=== PATIENT | male | born 1940 | race Caucasian/White ===

== ENCOUNTER 2018-05-18 18:26 | Inpatient (IN) | payer MEDICARE, BC ==
[~2018-05-18] VITALS: Ht 174 cm; Wt 83.6 kg
[~2018-05-18 18:26] MED LIST: ASPIRIN EC325 M1 PO; CALCIUM 600 +1 EAC3 PO; CARAFATE1 G PO; CIPRO250 MG PO; MULTIPLE VITAMI1 TA1 PO; PRILOSEC20 MG PO; VITAMIN C1000 MG PO
[2018-05-18] MEDS ORDERED: ASPIRIN81 MG PO (18:35)
[2018-05-18 18:56] LABS: BASOPHILS 0.2 % (0-2); EOSINOPHILS 0.7 % (0-7); HEMATOCRIT 44.9 % (42.0-54.0); HEMOGLOBIN 15.2 g/dL (13.5-17.5); IMMATURE GRANULOCYTES 0.2 % (0-5); LYMPHOCYTES 26.5 % (15-50); MCH 35.8 pg (26.0-34.0); MCHC 33.9 g/dL (31.0-37.0); MCV 105.9 fL (80.0-100.0); MEAN PLATELET VOLUME 11.4 fL (7.4-10.4); MONOCYTES 12.8 % (2-11); NEUTROPHILS 59.6 % (40-80); RBC 4.24 10x6/uL (4.20-6.10); RDW 13.3 % (11.5-14.5); WBC 12.2 10x3/uL (4.8-10.8)
--- NOTE | 2018-05-18 18:56 | NUR ---
REPORT GIVEN TO JAZMINE GALINDO
[2018-05-18 18:59] LABS: PLATELET COUNT 213 10x3/uL (130-400)
[2018-05-18 19:09] LABS: ALBUMIN 3.5 g/dL (3.4-5.0); ALKALINE PHOSPHATASE 53 U/L (46-116); ALT (SGPT) 43 U/L (10-68); BILIRUBIN - TOTAL 0.47 mg/dL (0.2-1.3); CALC OSMOLALITY 289 mosm/kg (275-300); CALCIUM 8.8 mg/dL (8.5-10.1); CARBON DIOXIDE 27.8 mmol/L (21.0-32.0); CHLORIDE - SERUM 104 mmol/L (98-107); GLUCOSE 115 mg/dL (74-106); POTASSIUM - SERUM 4.1 mmol/L (3.5-5.1); PROTEIN - SERUM 7.6 g/dL (6.4-8.2); SODIUM 142 mmol/L (136-145); UREA NITROGEN 30 mg/dL (7-18); eGFR NON AFRICAN AMERICAN 77 mL/min (90-120)
[2018-05-18 19:12] LABS: AMYLASE - SERUM 104 U/L (25-115); LIPASE 139 U/L (73-393); TROPONIN-I < 0.017 ng/mL (0.000-0.060)
[2018-05-18 19:18] LABS: APTT 25.8 SECONDS (22.8-39.4); INR 1.09 (0.85-1.17); PROTIME 13.6 SECONDS (11.6-15.0)
--- NOTE | 2018-05-18 20:20 | NUR ---
REC'D PT FROM ED VIA STRETCHER, ASSISTED TO ICU BED, STEM THRESHING MACHINE OPERATOR ATTACHED. HISTORY AND ADM. ASSESSMENT COMPLETED. VSS. WILL CONT TO MONITOR.
[2018-05-18 20:47] VITALS: BP 151/85; BMI 26.0
--- NOTE | 2018-05-18 20:50 | NUR ---
DR SWAIN AT BEDSIDE FOR EGD. CONSENTS SIGNED. BILATERAL 18G IV'S IN PLACE. PT AWAKE AND ALERT. QUESTIONS ANSWERED BY ANESTHESIA.
[2018-05-18 21:00] VITALS: BP 150/84
[2018-05-18 22:00] VITALS: BP 143/85
[2018-05-18 22:15] LABS: HEMATOCRIT 39.2 % (42.0-54.0); HEMOGLOBIN 13.1 g/dL (13.5-17.5)
[2018-05-18 23:00] VITALS: BP 141/74
--- NOTE | 2018-05-18 23:00 | NUR ---
PT IS AWAKE AND ALERT. C/O INTERMITANT NAUSEA. ZOFRAN GTT INFUSING. REGLAN GIVEN IV PER ORDER. VOIDS IN URINAL INDEPENDENTLY. VSS. DENIES PAIN
[2018-05-19] VITALS (23 sets, daily range): BP systolic 94–152; BP diastolic 72–101; Ht 174 cm; Wt 83.6 kg
[2018-05-19 04:27] LABS: BASOPHILS 0.1 % (0-2); EOSINOPHILS 0.1 % (0-7); HEMATOCRIT 39.3 % (42.0-54.0); HEMOGLOBIN 13.2 g/dL (13.5-17.5); IMMATURE GRANULOCYTES 0.2 % (0-5); LYMPHOCYTES 9.3 % (15-50); MCH 35.5 pg (26.0-34.0); MCHC 33.6 g/dL (31.0-37.0); MCV 105.6 fL (80.0-100.0); MEAN PLATELET VOLUME 11.3 fL (7.4-10.4); MONOCYTES 10.5 % (2-11); NEUTROPHILS 79.8 % (40-80); PLATELET COUNT 193 10x3/uL (130-400); RBC 3.72 10x6/uL (4.20-6.10); RDW 13.3 % (11.5-14.5); WBC 14.6 10x3/uL (4.8-10.8)
[2018-05-19 04:46] LABS: CALC OSMOLALITY 287 mosm/kg (275-300); CALCIUM 7.8 mg/dL (8.5-10.1); CARBON DIOXIDE 25.5 mmol/L (21.0-32.0); CHLORIDE - SERUM 107 mmol/L (98-107); GLUCOSE 109 mg/dL (74-106); POTASSIUM - SERUM 4.4 mmol/L (3.5-5.1); SODIUM 140 mmol/L (136-145); UREA NITROGEN 36 mg/dL (7-18)
[2018-05-19 04:54] LABS: APPEARANCE CLEAR (CLEAR); BILIRUBIN NEGATIVE (NEGATIVE); COLOR YELLOW (YELLOW); GLUCOSE NEGATIVE (NEGATIVE); KETONE NEGATIVE (NEGATIVE); NITRITE NEGATIVE (NEGATIVE); PROTEIN NEGATIVE (NEGATIVE); SPECIFIC GRAVITY 1.015 (1.005-1.020); UROBILINOGEN NORMAL (NORMAL)
[2018-05-19 04:55] LABS: BACTERIA NONE SEEN /hpf (NONE SEEN); EPITHELIAL CELLS 0-5 /hpf (0-5); RED CELLS - URINE 0-5 /hpf (0-5); WHITE CELLS - URINE NSEEN /hpf (0-5)
[2018-05-19 05:00] LABS: CREATININE - SERUM 0.7 mg/dL (0.6-1.3); eGFR NON AFRICAN AMERICAN > 90 mL/min (90-120)
--- NOTE | 2018-05-19 05:30 | NUR ---
PT OOB X 2 TRYING TO HAVE A BM. STATES THAT HE PASSED GAS BY NO BM. VSS.
--- NOTE | 2018-05-19 07:10 | NUR ---
DR. FALLON AT BEDSIDE, UPDATE GIVEN
--- NOTE | 2018-05-19 07:15 | NUR ---
SHIFT ASSESSMENT COMPLETE, PT IS ALERT AND ORIENTED, ON RA WITH 97% O2 SAT. ALL PPP, VSS, CALL LIGHT IN REACH
--- NOTE | 2018-05-19 09:15 | NUR ---
LG BM AT THIS TIME, STOOL SAMPLE SENT TO LAB,
[2018-05-19 10:01] LABS: HEMATOCRIT 38.3 % (42.0-54.0)
--- NOTE | 2018-05-19 11:29 | NUR ---
REASSESSMENT COMPLETE, NO CHANGES NOTED, WILL CON'T TO MONITOR
--- NOTE | 2018-05-19 13:15 | NUR ---
UPTO BSC AT THIS TIME, DARK TARRY STOOL NOTED,
--- NOTE | 2018-05-19 15:20 | NUR ---
REASSESSMENT COMPLETE, NO CHANGES NOTED, BATH AND LINEN CHANGE, WILL CON'T TO MONITOR
[2018-05-19 16:52] LABS: HEMATOCRIT 36.1 % (42.0-54.0); HEMOGLOBIN 12.3 g/dL (13.5-17.5)
--- NOTE | 2018-05-19 17:15 | NUR ---
SM BM AT THIS TIME, NO OTHER NEEDS NOTED,
--- NOTE | 2018-05-19 18:03 | HP ---
PATIENT: KAYLAN FOSTER MEDICAL RECORD: [id number] ACCOUNT: [id number] LOCATION:[facility] D.2311 : 42 ADMISSION DATE: 05/18/18 PCP: DIANA FALLON MD HISTORY AND PHYSICAL EXAMINATION REASON FOR ADMISSION: Abdominal pain, vomiting blood. 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 He has been cancer free for over 7 years and had normal EGD in February of this year. He states he had little change in his stools, are somewhat loose every other day for the last week. After an evening walk with his last evening, he became nauseated upon returning home and vomited twice and vomited dark blood. He got in the car to come to the hospital and pulled over, and vomited again and then vomiting again in the ER. He had no melena. He was admitted emergently, taken to the GI lab by Dr. Sanchez. An EGD was performed showing two Sara-Olvera tears in his Marcell-en-Y gastric mucosa and lots of blood in the stomach. He has been moved to the ICU, placed on Protonix and Zofran drip. He is comfortable currently, he is not anemic. 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 He had PE, DVT, remotely; currently off anticoagulants. CURRENT MEDICATIONS: Carafate 1 gram b.i.d., Ecotrin 81 mg a day. PAST SURGICAL HISTORY: Cholecystectomy, splenectomy, enterostomy, lymph node biopsy, partial gastrectomy with Marcell-en-Y anastomosis, he has had multiple upper and lower endoscopies, last EGD was in February of 2018 and normal, inguinal hernia repair on the right. 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 Remote smoker, 11-zndh-brre history, quit 28 years ago. He does not use alcohol or drugs. FAMILY HISTORY: Father of cancer of the prostate. Mother from stroke. REVIEW OF SYSTEMS: CONSTITUTIONAL: No fever, fatigue, or weight change. HEENT: No recent visual change, sinus congestion, or sore throat. He has chronic trouble hearing and wears hearing aids. RESPIRATORY: No SOB, cough or sputum production. CARDIAC: No exertional rest chest pain, claudication, edema or palpitations. GASTROINTESTINAL: Nausea starting this evening with multiple episodes of retching bright red blood. Denies melena. Loose stools have been softer recently states. He has had mild epigastric pain a week ago that was nothing more than a stomachache. GENITOURINARY: Nocturia once nightly. He has had borderline PSA with negative percent free PSA. ENDOCRINE: Denies polyuria, polydipsia, heat or cold intolerance. NEUROLOGIC: No history of stroke, TIA, or vascular headaches. INTEGUMENT: No rash or itching. HISTORY AND PHYSICAL [id number] KAYLAN FOSTER PSYCHIATRIC: Denies depressed mood. PHYSICAL EXAMINATION: GENERAL: Alert 78-year-old male in no acute distress. VITAL SIGNS: His temperature is 98 degrees Fahrenheit, pulse is 100, respirations are 18, sats 98% on room air. GENERAL: In no acute distress. HEENT: Eyes are clear. Oropharynx unremarkable. NECK: No bruits or masses. CHEST: Clear. HEART: Regular rate and rhythm without murmur. PMI appropriate. ABDOMEN: Epigastrium, nontender. No abdominal masses felt. RECTAL: Deferred. EXTREMITIES: No CC&E. INTEGUMENT: No icterus or petechiae. LABORATORY DATA: H&H is 13 and 36, stable. BUN elevated at 36. Otherwise normal. EGD as above. ASSESSMENT: Retching with acute upper gastrointestinal bleed, Sara-Olvera tears times 2, history of gastric carcinoma, History of deep vein thrombosis and pulmonary embolism. PLAN: The patient will remain in the ICU on IV Protonix and Reglan drips at this time. Dr. Sanchez may reendoscope before discharge from the hospital. TRANSINT:[id number] Voice Confirmation ID: [id number] DOCUMENT ID: [id number] DIANA FALLON MD at 1803 CC: [id number] DICTATION DATE: 05/19/18 0812 EHR TRAINER: 05/19/18 1023 [place] [address]
[2018-05-19 19:44] LABS: HEMATOCRIT 34.8 % (42.0-54.0); HEMOGLOBIN 11.9 g/dL (13.5-17.5)
[2018-05-20] VITALS (16 sets, daily range): BP systolic 115–143; BP diastolic 62–98
--- NOTE | 2018-05-20 04:00 | NUR ---
PT AWAKE AND ALERT. ORIENTED X 3. DEMIES NEEDS. BM X 2. ZOFRAN AND PROTONIX GTT INFUSING PER ORDERS. REMAINS NAUSEA FREE.
[2018-05-20 04:36] LABS: BASOPHILS 0.6 % (0-2); EOSINOPHILS 1.2 % (0-7); HEMATOCRIT 34.3 % (42.0-54.0); HEMOGLOBIN 11.4 g/dL (13.5-17.5); IMMATURE GRANULOCYTES 0.2 % (0-5); LYMPHOCYTES 28.6 % (15-50); MCHC 33.2 g/dL (31.0-37.0); MCV 105.2 fL (80.0-100.0); MEAN PLATELET VOLUME 11.2 fL (7.4-10.4); MONOCYTES 12.5 % (2-11); NEUTROPHILS 56.9 % (40-80); PLATELET COUNT 165 10x3/uL (130-400); RBC 3.26 10x6/uL (4.20-6.10); RDW 13.6 % (11.5-14.5)
[2018-05-20 04:39] LABS: WBC 8.6 10x3/uL (4.8-10.8)
[2018-05-20 04:46] LABS: CALCIUM 7.9 mg/dL (8.5-10.1); CARBON DIOXIDE 23.2 mmol/L (21.0-32.0); CHLORIDE - SERUM 109 mmol/L (98-107); GLUCOSE 103 mg/dL (74-106); POTASSIUM - SERUM 3.9 mmol/L (3.5-5.1); SODIUM 141 mmol/L (136-145); eGFR NON AFRICAN AMERICAN 87 mL/min (90-120)
[2018-05-20 04:55] LABS: CALC OSMOLALITY 281 mosm/kg (275-300); CREATININE - SERUM 0.9 mg/dL (0.6-1.3); UREA NITROGEN 14 mg/dL (7-18)
--- NOTE | 2018-05-20 07:02 | NUR ---
REPORT RECIEVED, SHIFT ASSESSMENT COMPLETE, PT IS ALERT AND ORIENTED, DR. FALLON AT BEDSIDE, UPDATE GIVEN, ALL PPP, VSS, CALL LIGHT IN REACH
--- NOTE | 2018-05-20 08:44 | NUR ---
UPDATE GIVEN TO FRED ALEXANDER TO TRANSFER TO FLOOR
--- NOTE | 2018-05-20 08:45 | NUR ---
REPORT CALLED TO SHEYLA GALINDO ON MED 2
--- NOTE | 2018-05-20 09:16 | NUR ---
RECEIVED TO ROOM FROM ICU VIA WHEELCHAIR. GLASSES ON. RIGHT HAND PIV WITH ZOFRAN INFUSING AT 4.7, RIGHT FA PIV WITH NS INFUSING AT 10 CC/HR AND PROTONIX INFUSING AT 10 CC/HR. DENIES NEEDS AT THIS TIME. CALL LIGHT IN USE.
--- NOTE | 2018-05-20 10:15 | NUR ---
LAYING IN BED WATCHING TV.
--- NOTE | 2018-05-20 11:42 | NUR ---
CALLED TO ROOM WITH RASHIDA STATING THAT HE IS SLIGHTLY NASUSEATED. STILL ON ZOFRAN DRIP. CALL PLACED TO DR HARVEY TO SEE IF I CAN GIVE HIM ANY ADDTIONAL MEDICATION. NEW ORDERS RECEIVED.
--- NOTE | 2018-05-20 12:32 | NUR ---
PHENERGAN SUPP GIVEN PER REQUEST. ONSTRCUTED TO MAKE SURE STAFF IS IN THE ROOM WHEN NEEDING TO GET UP. STATES TO UNDERSTANDING.
--- NOTE | 2018-05-20 14:04 | NUR ---
1400- TO COME GET ME WITH PATIENT IN RESTROOM THROWING UP SOME BRIGHT RED BLOOD. CALL PLACED TO DR FALLON OFFICE, DR VILLAREAL HEAD OF STORE OPERATIONS. HE ASKED THAT I CALL DR SWAIN. NEW ORDERS RECEIVED. PATIENT IS MADE NPO.
--- NOTE | 2018-05-20 14:27 | NUR ---
DR SWAIN TO CALL WITH TRANSFER ORDER FOR ICU TODAY TO OBSERVE PATIENT SHE CAN'T SCOPE HIM THIS EVENING. I CALLED HOT PLATE PLYWOOD PRESS OPERATOR AND LET HER BE AWARE OF THIS.
--- NOTE | 2018-05-20 14:28 | NUR ---
I CALLED DARLIN IN ICU AND GAVE REPORT.
--- NOTE | 2018-05-20 14:38 | NUR ---
I CALLED AND NOTIFIED DR VILLAREAL OF THE ROOM NUMBER FOR ICU.
--- NOTE | 2018-05-20 14:56 | NUR ---
1450-TRANSFERRED TO ICU VIA WHEELCHAIR.
[2018-05-20 18:36] LABS: BASOPHILS 0.3 % (0-2); EOSINOPHILS 0.2 % (0-7); HEMATOCRIT 32.4 % (42.0-54.0); HEMOGLOBIN 10.9 g/dL (13.5-17.5); IMMATURE GRANULOCYTES 0.3 % (0-5); LYMPHOCYTES 16.3 % (15-50); MCH 35.2 pg (26.0-34.0); MCHC 33.6 g/dL (31.0-37.0); MCV 104.5 fL (80.0-100.0); MEAN PLATELET VOLUME 11.5 fL (7.4-10.4); MONOCYTES 8.8 % (2-11); NEUTROPHILS 74.1 % (40-80); PLATELET COUNT 156 10x3/uL (130-400); RDW 13.5 % (11.5-14.5)
[2018-05-20 18:38] LABS: WBC 14.4 10x3/uL (4.8-10.8)
[2018-05-20 21:28] LABS: HEMATOCRIT 29.1 % (42.0-54.0); HEMOGLOBIN 9.6 g/dL (13.5-17.5)
--- NOTE | 2018-05-20 22:30 | NUR ---
HEMG 9.6 TRANSFUSING 1UPRBC
--- NOTE | 2018-05-20 23:11 | NUR ---
PT HEMG 9.6 INFUSING 1UPRBC'S PER NURSING ORDER. VSS NO S/S OF DISTRESS CALL LIGHT IN REACH PT USING URINAL WILL CONTINUE TO MONITOR.
[2018-05-21] VITALS (24 sets, daily range): BP systolic 104–149; BP diastolic 41–91
--- NOTE | 2018-05-21 00:09 | NUR ---
blood infusing no s/s of distress vss, all needs met at this time, will continue to monitor.
--- NOTE | 2018-05-21 01:09 | NUR ---
blood finished pt tolerated well, vss, all fulids running as ordered, no other needs at this time.
--- NOTE | 2018-05-21 02:07 | NUR ---
pt resting well, vss no s/s of distress call light in reach no needs at this time will continue to monitor.
--- NOTE | 2018-05-21 04:35 | NUR ---
pt still resting well, no changes to report at this time will continue to monitor.
[2018-05-21 04:44] LABS: BASOPHILS 0.3 % (0-2); EOSINOPHILS 1.8 % (0-7); HEMATOCRIT 30.3 % (42.0-54.0); HEMOGLOBIN 10.3 g/dL (13.5-17.5); IMMATURE GRANULOCYTES 0.2 % (0-5); LYMPHOCYTES 24.5 % (15-50); MCH 34.3 pg (26.0-34.0); MEAN PLATELET VOLUME 11.6 fL (7.4-10.4); MONOCYTES 14.4 % (2-11); NEUTROPHILS 58.8 % (40-80); PLATELET COUNT 133 10x3/uL (130-400)
[2018-05-21 05:03] LABS: WBC 8.7 10x3/uL (4.8-10.8)
[2018-05-21 05:16] LABS: CALC OSMOLALITY 285 mosm/kg (275-300); CALCIUM 7.6 mg/dL (8.5-10.1); CARBON DIOXIDE 23.5 mmol/L (21.0-32.0); CHLORIDE - SERUM 109 mmol/L (98-107); CREATININE - SERUM 0.7 mg/dL (0.6-1.3); GLUCOSE 98 mg/dL (74-106); POTASSIUM - SERUM 4.2 mmol/L (3.5-5.1); SODIUM 142 mmol/L (136-145); eGFR NON AFRICAN AMERICAN > 90 mL/min (90-120)
[2018-05-21 05:27] LABS: UREA NITROGEN 22 mg/dL (7-18)
--- NOTE | 2018-05-21 09:29 | NUR ---
NUTRITION F/U PT REMAINS NPO S/P PROCEDURE. WILL MONITOR DIET ADVANCEMENT, PT PROGRESS. RD FOLLOWING
[2018-05-21 09:51] LABS: HEMATOCRIT 31.9 % (42.0-54.0); HEMOGLOBIN 10.8 g/dL (13.5-17.5)
[2018-05-21 16:58] LABS: HEMATOCRIT 31.6 % (42.0-54.0); HEMOGLOBIN 10.5 g/dL (13.5-17.5)
--- NOTE | 2018-05-21 18:49 | MORECARE ---
CASE MANAGEMENT DISCHARGE SUMMARY PATIENT: KAYLAN FOSTER UNIT: [id number] ADM DATE: 05/18/18 AGE: 78 : 42 SEX: M ROOM/BED: D.2316 AUTHOR: MARISELADOC PHYSICIAN: REFERRING PHYSICIAN: DIANA FALLON MD DATE OF SERVICE: 05/21/18 Discharge Plan Patient Name: KAYLAN FOSTER Facility: [facility]:[place] : 1940 Planned Disposition: Home Anticipated Discharge Date: Discharge Date: Expected LOS: Initial Reviewer: [email or web address] Initial Review Date: 05/21/2018 Generated: 05/21/18 7:49 pm Comments DCP- Discharge Planning Updated by [email or web address]: Holley Duval on 05/21/18 5:[address] LATE ENTRY 05/21/18 @ 1735 Patient Name: KAYLAN FOSTER Admission Status: ER Accout number: [id number] Admission Date: 05-18-2018 : 1940 Admission Diagnosis:GASTROINTESTINAL HEMORRHAGE, UNSPECIFIED Attending: DIANA FALLON Current LOS: 3 Anticipated DC Date: Planned Disposition: Home Primary Insurance: MEDICARE A & B Discharge Planning Comments: CM met with patient at bedside after obtaining verbal consent. Patient states he plans on returning home after discharge with his . Patient states he will have family transport him home via private vehicle. Patient denies any discharge needs at this time. CM will continue to follow and assist as needed for discharge planning / needs. Diesel Dragline Operator: Holley Duval DCPIA - Discharge Planning Initial Assessment Updated by [email or web address]: Holley Duval on 05/21/18 6:46 pm * Is the patient Alert and Oriented? Yes * How many steps to enter\exit or inside your home? * PCP SINHALA * [facility] * Preadmission Environment Home with Family * ADLs Independent * Equipment None * List name and contact numbers for known caregivers / representatives who currently or will assist patient after discharge: AVIVA FOSTER - - [phone] * Verbal permission to speak to the caregivers and representatives has been obtained from the patient. Yes * Community resources currently utilized None * Additional services required to return to the preadmission environment? No * Can the patient safely return to the preadmission environment? Yes * Has this patient been hospitalized within the prior 30 days at any hospital? No Patient Name: KAYLAN FOSTER Page [phone] at 1849 All edits/amendments must be made on the electronic document DICTATION DATE: 05/21/181848 SUB PLANT MANAGER: ALYSSA 05/21/181848 RPT#: [id number] DC DATE: STATUS: ADM IN [facility] [address] [place] [address] END OF REPORT
--- NOTE | 2018-05-21 20:00 | NUR ---
PT SITTING IN BED WATCHING TV AND TALKING TO , VSS NO S/S OF DISTRESS, NO NEEDS AT THIS TIME ALL SAFETY MEASURES IN PLACE HOURLY ROUNDING, CALL LIGHT IN REACH WILL CONTINUE AND MONITOR.
[2018-05-22] VITALS (19 sets, daily range): BP systolic 98–154; BP diastolic 52–95
--- NOTE | 2018-05-22 00:31 | NUR ---
pt resting well, HR dropping into the 50's, non symptomatic wake easily and says he feels good, will continue to watch closely.
[2018-05-22 04:09] LABS: BASOPHILS 0.6 % (0-2); EOSINOPHILS 2.2 % (0-7); HEMATOCRIT 30.9 % (42.0-54.0); HEMOGLOBIN 10.4 g/dL (13.5-17.5); IMMATURE GRANULOCYTES 0.1 % (0-5); LYMPHOCYTES 21.4 % (15-50); MCH 34.3 pg (26.0-34.0); MCHC 33.7 g/dL (31.0-37.0); MONOCYTES 12.1 % (2-11); NEUTROPHILS 63.6 % (40-80); PLATELET COUNT 140 10x3/uL (130-400); RBC 3.03 10x6/uL (4.20-6.10); RDW 15.2 % (11.5-14.5); WBC 7.7 10x3/uL (4.8-10.8)
[2018-05-22 04:17] LABS: CALCIUM 7.6 mg/dL (8.5-10.1); CARBON DIOXIDE 23.1 mmol/L (21.0-32.0); CHLORIDE - SERUM 107 mmol/L (98-107); GLUCOSE 119 mg/dL (74-106); POTASSIUM - SERUM 3.7 mmol/L (3.5-5.1); SODIUM 141 mmol/L (136-145); eGFR NON AFRICAN AMERICAN 87 mL/min (90-120)
[2018-05-22 04:19] LABS: CALC OSMOLALITY 281 mosm/kg (275-300); CREATININE - SERUM 0.9 mg/dL (0.6-1.3); UREA NITROGEN 13 mg/dL (7-18)
--- NOTE | 2018-05-22 07:00 | NUR ---
ASSESSMENT COMPLETE PT DENIES ABD PAIN OR NAUSEA AT THIS TIME. VSS SEE IV FLOWSHEET FOR IV DRIPS. CALL LIGHT IN REACH
[2018-05-22 07:21] LABS: FOLATE (FOLIC ACID) - SERUM 11.9 ng/mL (>3.0)
--- NOTE | 2018-05-22 08:00 | NUR ---
PTS SPOUSE HERE FOR VISITATION. PT HAS JELLO ON HIS BREAKFAST TRAY BUT DUE TO PREVIOUS ABDOMINAL SURGERY UNABLE TO EAT SUGAR. REQUEST SENT FOR SUGAR FREE JELLO
--- NOTE | 2018-05-22 11:00 | NUR ---
REASSESSMENT COMPLETED PT UP TO BSC WITH MINIMAL ASSIST APPROXIMATE 100 CC DARK LIQUID STOOL. PT C/O SLIGHT NAUSEA WHEN STANDING UP. HAS ZOFRAN DRIP BUT HAS PROMETHAZINE SUPP PRN. VSS AT THIS TIME
--- NOTE | 2018-05-22 11:08 | NUR ---
PHENEGRAN SUPPOSITORY GIVEN PER PRN ORDER PT SAYS NOT TOO BAD NAUSEATED BUT WANTED TO KEEP FROM WORSENING
--- NOTE | 2018-05-22 12:00 | NUR ---
PT DENIES NAUSEA PHENEGRAN SUPPOSITORY EFFECTIVE
--- NOTE | 2018-05-22 14:30 | NUR ---
LAB HERE FOR SERIAL H&H
--- NOTE | 2018-05-22 14:45 | NUR ---
DR VILLAFUERTE ROUNDING SPEAKING WITH PATIENT AWAITING RESULT FROM LAB TEST BEFORE MAKING DECISION ABOUT FLOOR TRANSFER. VSS AT THIS TIME AND NO ACTIVE FRESH BLOOD NOTED IN STOOL. PT HAS HAD [address] VILLAFUERTE AWARE
[2018-05-22 15:06] LABS: HEMATOCRIT 30.5 % (42.0-54.0); HEMOGLOBIN 10.4 g/dL (13.5-17.5)
--- NOTE | 2018-05-22 16:00 | NUR ---
PTS AT BEDSIDE ASSISTING PT WITH BED BATH COMPLETE LINEN CHANGE VSS NO DISTRESS NOTED
--- NOTE | 2018-05-22 16:15 | NUR ---
DR VILLAFUERTE NOTIFIED PER PHONE ABOUT PTS H&H LEVEL STABLE FROM 0400 DRAW 10.4/30.5. ALSO ASKED IF OK TO HAVE PT WORK WITH PATIENT PER PTS REQUEST SHE SAID YES AND OK TO START FLOOR TRANSFER PROCESS.
--- NOTE | 2018-05-22 18:45 | NUR ---
COMPLETE LINEN CHANGE. FLOOR ORDERS PLACED PTS FULL LIQUID DIET HAS JUST BEEN DELIVERED. CALL LIGHT IN REACH
--- NOTE | 2018-05-22 20:36 | NUR ---
ASSESSMENT COMPLETE, HELPED PT AMBULATE TO BSC, HE TOLERATED WELL, RETURNED TO BED THIS NURSE ONLY HELPED TO MANAGE IV LINES PT IS STEADY ON FEET. ALL NEEDS MET, MEDS WERE GIVEN, ALL IV'S RUNNING, NO OTHER NEEDS AT THIS TIME, ALL SAFETY MEASURES IN PLACE, CALL LIGHT IN REACH WILL CONTINUE TO MONITOR.
[2018-05-22 21:37] LABS: HEMOGLOBIN 9.8 g/dL (13.5-17.5)
--- NOTE | 2018-05-22 22:40 | NUR ---
HEMG CAME BACK AT 9.8 PHYSICIAN INFORMED, RECEIVED ORDERS GO HOLD MOVE ORDER AND TRANSFUSE 1 UNIT OF PRBC AND IF DROPS AGAIN ORDER RVC SCAN.
--- NOTE | 2018-05-22 23:52 | NUR ---
received blood and started
[2018-05-23] VITALS (9 sets, daily range): BP systolic 111–158; BP diastolic 60–88
--- NOTE | 2018-05-23 01:12 | NUR ---
BLOOD STILL INFUSING PT TOLERATING WELL, WILL CONTINUE TO MONITOR.
--- NOTE | 2018-05-23 02:13 | NUR ---
blood finished infusing at 0200, pt tolerated well no reaction noted, pt denies shortness of breath or itching vss.
[2018-05-23 03:58] LABS: HEMATOCRIT 31.9 % (42.0-54.0); HEMOGLOBIN 10.7 g/dL (13.5-17.5)
--- NOTE | 2018-05-23 06:40 | NUR ---
at bedside no s/s of distress no needs at this time, updated on last nights events. all needs met at this time.
--- NOTE | 2018-05-23 07:00 | NUR ---
ASSESSMENT COMPLETE PT AWAKE ALERT AND ORIENTED TIMES 4. DENIES PAIN OR DISCOMFORT. PT DID STATE HE WAS VERY ANXIOUS AFTER SMALL DROP IN LAST H&H DRAW. INFORMED HIM WE WILL BE RECHECKING LEVELS OFTEN TO MONITOR CLOSELY. PT HAS NOT HAD ANOTHER BM SINCE YESTERDAY AND NO INDICATION OF BLEEDING NOTED WITH VITAL SIGNS
--- NOTE | 2018-05-23 08:00 | NUR ---
PTS AT BEDSIDE. PT STILL HAS TRANSFER ORDERS TO FLOOR JUST NO ROOM AVAILABLE AT THIS TIME.
--- NOTE | 2018-05-23 09:00 | NUR ---
SCD MACHINE AVAILABLE BROUGHT TO UNIT BY ENVIRONMENTAL COMPLIANCE MANAGER. BLE SLEEVES PLACED ON PT AND MACHINE WORKING WITH BOTH SLEEVES. EDUCATED PT AND ON SCD PUMPS. BOTH VERBALIZE GOOD UNDERSTANDING
--- NOTE | 2018-05-23 09:15 | NUR ---
DR FALLON ROUNDING ON PT. HE IS AWARE PT HAS TRANSFER ORDERS JUST NO BEDS AVAILABLE AT THIS TIME. STATED PT WAS ANXIOUS AND HE WOULD PROBABLY START A PRN NERVE MEDICATION.
--- NOTE | 2018-05-23 13:00 | NUR ---
PTS STILL AT BEDSIDE AND FRIENDS HERE VISITNG. PT DENIES NAUSEA OR DISCOMFORT AT THIS TIME. CALL LIGHT IN REACH VSS
--- NOTE | 2018-05-23 14:50 | NUR ---
PT HERE WALKING PATIENT WALKED AROUND UNIT WITHOUT DIFFICULTY
--- NOTE | 2018-05-23 15:35 | NUR ---
PAGED DR VILLAFUERTE TO SEE IF SHE WANTED TO CONTINUE THE DRIPS PT IS ON? SHE WANTS TO CONTINUE NS @100 PROTONIX AT 10CC/HOUR D/C THE SANDOSTATIN CHANGE THE CONTINUOUS ZOFRAN TO 4 MG PRN IV SHE ALSO STATED ABLE TO ADVANCE DIET TO LOW SOFT RESIDUE INFORMED NOY OF PTS ROOM ASSIGNMENT 1202 ON MED III
--- NOTE | 2018-05-23 15:40 | NUR ---
REPORT CALLED TO ABE GALINDO TAKING PT TO 1202 ON MED III.
--- NOTE | 2018-05-23 17:03 | NUR ---
RESUMED PT CARE. PT ALERT X 4. FAMILY AT BEDSIDE. NO NEEDS AT THIS TIME.
--- NOTE | 2018-05-23 20:12 | NUR ---
PATIENT RESTING IN BED WITH NO S/S OF DISTRESS. DISCUSSED MEDS WITH THE PATIENT. PATIENT DENIES NEEDS AT THIS TIME. BED IN LOWEST POSITION AND CALL LIGHT WITHIN REACH. ENCOURAGED THE PATIENT TO CALL IF HE HAS NEEDS. WILL CONTINUE TO MONITOR.
[2018-05-24 04:00] VITALS: BP 132/68
[2018-05-24 08:24] VITALS: BP 132/66
--- NOTE | 2018-05-24 08:57 | NUR ---
XANAX GIVEN ORDERED, PT FIXING TO GO FOR A WALK ACCOMPANIED BY SPOUSE, NAD NOTED.
[2018-05-24 09:10] LABS: BASOPHILS 0.4 % (0-2); EOSINOPHILS 2.1 % (0-7); HEMATOCRIT 30.9 % (42.0-54.0); HEMOGLOBIN 10.1 g/dL (13.5-17.5); IMMATURE GRANULOCYTES 0.1 % (0-5); MCH 32.7 pg (26.0-34.0); MCHC 32.7 g/dL (31.0-37.0); MEAN PLATELET VOLUME 12.8 fL (7.4-10.4); MONOCYTES 14.1 % (2-11); NEUTROPHILS 65.3 % (40-80); PLATELET COUNT 150 10x3/uL (130-400); RBC 3.09 10x6/uL (4.20-6.10); RDW 16.7 % (11.5-14.5)
--- NOTE | 2018-05-24 12:13 | MORECARE ---
CASE MANAGEMENT DISCHARGE SUMMARY PATIENT: KAYLAN FOSTER UNIT: [id number] ADM DATE: 05/18/18 AGE: 78 : 42 SEX: M ROOM/BED: D.1202 AUTHOR: JAYLEN ANTONIO PHYSICIAN: REFERRING PHYSICIAN: DIANA FALLON MD DATE OF SERVICE: 05/24/18 Discharge Plan Patient Name: KAYLAN FOSTER Facility: [facility]:[place] : 1940 Planned Disposition: Home Anticipated Discharge Date: Discharge Date: Expected LOS: Initial Reviewer: [email or web address] Initial Review Date: 05/21/2018 Generated: 05/24/18 1:13 pm Comments DCP- Discharge Planning Updated by [email or web address]: Roya Gonzalez on 05/24/18 11:[address] Patient Name: KAYLAN FOSTER Encounter No: [id number] : 1940 Primary Insurance: MEDICARE A & B Anticipated DC Date: Planned Disposition: Home External Planned Provider: : DCP follow-up note: Patient and family in agreement with discharge plan. No changes to plan. Case management will follow and assist as needed. Roya Gonzalez DCP- Discharge Planning Updated by [email or web address]: Holley Duval on 05/21/18 5:[address] LATE ENTRY 05/21/18 @ 1735 Patient Name: KAYLAN FOSTER Admission Status: ER Accout number: [id number] Admission Date: 05-18-2018 : 1940 Admission Diagnosis:GASTROINTESTINAL HEMORRHAGE, UNSPECIFIED Attending: DIANA FALLON Current LOS: 3 Anticipated DC Date: Planned Disposition: Home Primary Insurance: MEDICARE A & B Discharge Planning Comments: CM met with patient at bedside after obtaining verbal consent. Patient states he plans on returning home after discharge with his . Patient states he will have family transport him home via private vehicle. Patient denies any discharge needs at this time. CM will continue to follow and assist as needed for discharge planning / needs. Administrative Tech: Holley Duval DCPIA - Discharge Planning Initial Assessment Updated by [id number]: Holley Duval on 05/21/18 6:46 pm * Is the patient Alert and Oriented? Yes * How many steps to enter\exit or inside your home? * PCP MAORI * [facility] * Preadmission Environment Home with Family * ADLs Independent * Equipment None * List name and contact numbers for known caregivers / representatives who currently or will assist patient after discharge: AVIVA FOSTER - - [phone] * Verbal permission to speak to the caregivers and representatives has been obtained from the patient. Yes * Community resources currently utilized None * Additional services required to return to the preadmission environment? No * Can the patient safely return to the preadmission environment? Yes * Has this patient been hospitalized within the prior 30 days at any hospital? No Last DP export: 05/21/18 5:49 pm Patient Name: KAYLAN FOSTER Page 19405 at 1213 All edits/amendments must be made on the electronic document DICTATION DATE: 05/24/18 121 WATER CHASER: ALYSSA 05/24/18 1213 RPT#: [id number] DC DATE: STATUS: ADM IN [facility] [address] [place] [address] END OF REPORT
[2018-05-24 13:00] VITALS: BP 129/72
--- NOTE | 2018-05-24 14:43 | NUR ---
STARTED FEEDING AT THIS TIME. GLUCERNA 1.0CAL AT 30CC/HR FOR 2HRS AND THEN INCREASE TO 65ML/HR WITH 15ML/HR FLUSH. PT DENIES ANY NEEDS AT THIS TIME. FAMILY AT BEDSIDE, CALL LIGHT IN REACH, NAD NOTED, WILL CONTINUE TO MONITOR.
--- NOTE | 2018-05-24 15:01 | NUR ---
PT RESTING COMFORTABLY IN BED, DENIES ANY NEEDS AT THIS TIME, CALL LIGHT IN REACH, NAD NOTED, WILL CONTINUE TO MONITOR.
--- NOTE | 2018-05-24 17:17 | NUR ---
OK TO D/C FROM GI STANDPOINT, PAGED DR. STEINER TO NOTIFY HIM.
[2018-05-24] MEDS ORDERED: PROTONIX40 MG PO (17:21)
[2018-05-24] MEDS ORDERED: CARAFATE1 G PO (17:21)
[2018-05-24] MEDS ORDERED: ZOFRAN ODT4 MG/UDTAB PO (17:22)
--- NOTE | 2018-05-24 17:53 | NUR ---
PRESCRIPTION CALLED IN TO [facility] AND SPOKE WITH PRINCESS PHARMACIST. ORDER FOR ZOFRAN ODT, CARAFATE 1G ACHS, AND PROTONIX 4OMG BID.
--- NOTE | 2018-05-24 18:27 | NUR ---
PROVIDED VERBAL AND WRITTEN DISHCHARGE TEACHING, TO PT AND SPOUSE, BOTH VERBALIZED UNDERSTANDING REGARDING TEACHING. D/C RT FA IV AND RT HAND IV, WITH CATHETER TIP INTACT. PT LEFT UNIT VIA AMBULATORY WITH ALL BELONGINGS ACCOMPANIED BY SPOUSE.
[2018-05-25 03:11] LABS: OVA + PARASITE EXAM Final report (())
--- NOTE | 2018-05-28 15:50 | MORECARE ---
CASE MANAGEMENT DISCHARGE SUMMARY PATIENT: KAYLAN FOSTER UNIT: [id number] ADM DATE: 05/18/18 AGE: 78 : 42 SEX: M ROOM/BED: D.1202 AUTHOR: JAYLEN ANTONIO PHYSICIAN: REFERRING PHYSICIAN: DIANA FALLON MD DATE OF SERVICE: 05/28/18 Discharge Plan Patient Name: KAYLAN FOSTER Facility: [facility]:[place] : 1940 Planned Disposition: Home Anticipated Discharge Date: Discharge Date: 05/24/2018 Expected LOS: Initial Reviewer: [email or web address] Initial Review Date: 05/21/2018 Generated: 05/28/18 4:50 pm Comments DCP- Discharge Planning Updated by [email or web address]: Roya Gonzalez on 05/24/18 11:[address] Patient Name: KAYLAN FOSTER Encounter No: [id number] : 1940 Primary Insurance: MEDICARE A & B Anticipated DC Date: Planned Disposition: Home External Planned Provider: : DCP follow-up note: Patient and family in agreement with discharge plan. No changes to plan. Case management will follow and assist as needed. Roya Gonzalez DCP- Discharge Planning Updated by [email or web address]: Holley Duval on 05/21/18 5:[address] LATE ENTRY 05/21/18 @ 1735 Patient Name: KAYLAN FOSTER Admission Status: ER Accout number: [id number] Admission Date: 05-18-2018 : 1940 Admission Diagnosis:GASTROINTESTINAL HEMORRHAGE, UNSPECIFIED Attending: DIANA FALLON Current LOS: 3 Anticipated DC Date: Planned Disposition: Home Primary Insurance: MEDICARE A & B Discharge Planning Comments: CM met with patient at bedside after obtaining verbal consent. Patient states he plans on returning home after discharge with his . Patient states he will have family transport him home via private vehicle. Patient denies any discharge needs at this time. CM will continue to follow and assist as needed for discharge planning / needs. Real Estate Inspector: Holley Duval DCPIA - Discharge Planning Initial Assessment Updated by [email or web address]: Holley Duval on 05/21/18 6:46 pm * Is the patient Alert and Oriented? Yes * How many steps to enter\exit or inside your home? * PCP [place] * [facility] * Preadmission Environment Home with Family * ADLs Independent * Equipment None * List name and contact numbers for known caregivers / representatives who currently or will assist patient after discharge: AVIVA FOSTER - - [phone] * Verbal permission to speak to the caregivers and representatives has been obtained from the patient. Yes * Community resources currently utilized None * Additional services required to return to the preadmission environment? No * Can the patient safely return to the preadmission environment? Yes * Has this patient been hospitalized within the prior 30 days at any hospital? No Last DP export: 05/24/18 11:13 am Patient Name: KAYLAN FOSTER Page [phone] at 1550 All edits/amendments must be made on the electronic document DICTATION DATE: 05/28/181548 CHEERLEADING COACH: ALYSSA 05/28/18 1549 RPT#: [id number] DC DATE:05/24/18 STATUS: DIS IN [facility] [address] [place] [address] END OF REPORT
== END 2018-05-24 18:29 | disposition home or self-care (01) | DRG 369 ==
LOC: D.ER 18:26 → D.EDHOLD 19:40 → D.ICU 19:40 → D.M2 05-20 08:50 → D.ICU 05-20 14:49 → D.M3 05-23 16:00
PROVIDERS: Emergency Medicine; Internal Medicine Gastroenterology; ADMIT Family Medicine
PROC: 3E0G8GC Introduction of Other Therapeutic Substance into Upper GI, Via Natural or Artificial Opening Endoscopic (ICD-10-PCS; 2018-05-18)
PROC: 0W3P8ZZ Control Bleeding in Gastrointestinal Tract, Via Natural or Artificial Opening Endoscopic (ICD-10-PCS; principal; 2018-05-18 20:00)
PROC: 0W3P8ZZ Control Bleeding in Gastrointestinal Tract, Via Natural or Artificial Opening Endoscopic (ICD-10-PCS; 2018-05-20)
DX: K22.6 Gastro-esophageal laceration-hemorrhage syndrome (principal); D62 Acute posthemorrhagic anemia; K44.9 Diaphragmatic hernia without obstruction or gangrene; E87.6 Hypokalemia; D72.829 Elevated white blood cell count, unspecified; Z85.028 Personal history of other malignant neoplasm of stomach; Z86.718 Personal history of other venous thrombosis and embolism; Z86.711 Personal history of pulmonary embolism

== ENCOUNTER → 2018-05-31 08:44 | Outpatient (CLI) | payer MEDICARE, BC ==
[2018-05-19 09:22] VITALS: BMI 25.9
[~2018-05-31 08:44] MED LIST changes: +ASPIRIN81 MG PO; +PROTONIX40 MG PO; +ZOFRAN ODT4 MG/UDTAB PO
[2018-05-31 09:33] LABS: BASOPHILS 1.2 % (0-2); EOSINOPHILS 1.7 % (0-7); HEMATOCRIT 37.1 % (42.0-54.0); HEMOGLOBIN 12.2 g/dL (13.5-17.5); IMMATURE GRANULOCYTES 0.1 % (0-5); LYMPHOCYTES 29.1 % (15-50); MCH 33.3 pg (26.0-34.0); MCHC 32.9 g/dL (31.0-37.0); MCV 101.4 fL (80.0-100.0); MEAN PLATELET VOLUME 11.1 fL (7.4-10.4); MONOCYTES 13.7 % (2-11); NEUTROPHILS 54.2 % (40-80); RBC 3.66 10x6/uL (4.20-6.10); RDW 15.7 % (11.5-14.5); WBC 6.9 10x3/uL (4.8-10.8)
[2018-05-31 09:39] LABS: PLATELET COUNT 348 10x3/uL (130-400)
== END | disposition home or self-care (01) ==
LOC: D.LAB 08:44
PROVIDERS: Internal Medicine Gastroenterology
DX: K92.0 Hematemesis (principal); D64.9 Anemia, unspecified